=== PATIENT | female | born 2000 | race African-American/Black ===

== ENCOUNTER 2025-08-27 10:04 | Emergency (ER) | payer SELFPAY ==
[2025-08-27] MEDS ORDERED: Ibuprofen 200 MG TAB ONE (10:44)
[2025-08-27 10:48] LABS: Pregnancy Test - Urine (BHCG) Negative (Negative); Pregu Control Background? CLEAR/WHITE (CLR/WHITE); Pregu Control Bar Appear? YES (CONTROL BAR)
[2025-08-27 10:49] LABS: Glucose, Urine (Dipstick) Normal (Negative); Leukocyte 25 (Negative); Protein, Urine (Dipstick) 30 mg/dl (Neg-Trace); Specific Gravity, Urine 1.025 (1.005-1.030)
[2025-08-27] MEDS ORDERED: predniSONE 20 MG TAB ONE (10:52)
[2025-08-27 11:04] LABS: Bacteria/HPF 4+ HPF (None Seen); CAUTI Indications for Culture Pelvic or flank pain; RBC/HPF 0-3 HPF (0-3)
[2025-08-27 11:05] LABS: Urine Culture Reflex No No
== END 2025-08-27 11:25 | disposition home or self-care (01) ==
LOC: CSHERS 10:04
DX: B34.9 Viral infection, unspecified (principal)
CPT/HCPCS: 71045; 81001; 81025; 87081; 87428; 87430; J7512